=== PATIENT | female | born 1995 | race Caucasian/White ===

== ENCOUNTER 2023-03-13 07:55 | Emergency (ER) | payer SELFPAY ==
[2023-03-13] MEDS ORDERED: Bupivacaine 0.5% 10 ML SDV INJECT ONE (08:24)
[2023-03-13] MEDS ORDERED: Lidocaine 1% PF 2 ML SDV INJECT ONE (08:24)
== END 2023-03-13 09:05 | disposition home or self-care (01) ==
LOC: MW.ED 07:55
DX: K02.9 Dental caries, unspecified (principal); J45.909 Unspecified asthma, uncomplicated; Z98.890 Other specified postprocedural states; Z88.8 Allergy status to other drugs, medicaments and biological substances
CPT/HCPCS: 64400; 99282; J3490

== ENCOUNTER 2024-08-01 11:32 | Emergency (ER) | payer OTHER ==
[2024-08-01] MEDS: Sodium Chloride 0.9% 1,000 ML IV ONE (11:57)
[2024-08-01] MEDS: Metoclopramide 10 MG/2 ML SDV IVPUSH ONE (11:57)
[2024-08-01] MEDS: Ketorolac 30 MG/ML SDV IVPUSH ONE (11:58)
[2024-08-01] MEDS: Ondansetron 4 MG/2 ML SDV IVPUSH ONE (11:59)
[2024-08-01] MEDS: diphenhydrAMINE 50 MG/ML SDV IVPUSH ONE (11:59)
== END 2024-08-01 13:23 | disposition home or self-care (01) ==
LOC: MW.ED 11:32
DX: G43.909 Migraine, unspecified, not intractable, without status migrainosus (principal); J32.9 Chronic sinusitis, unspecified; Z88.8 Allergy status to other drugs, medicaments and biological substances; Z75.8 Other problems related to medical facilities and other health care
CPT/HCPCS: 87428; 96374; 96375; 99283; J1200; J1885; J2405; J2765; J7030